=== PATIENT | male | born 1950 | race Asian ===

== ENCOUNTER 2021-02-27 06:18 | Emergency (ER) | payer OTHER ==
[2021-02-27 06:47] VITALS: TEMP 98.4; BMI 24.3
[2021-02-27] MEDS ORDERED: ACETAMINOPHEN 325 MG TABLET (FP) PO ONE (07:17)
[2021-02-27] MEDS ORDERED: ACETAMINOPHEN 325 MG TABLET (FP) ONE (07:38)
[2021-02-27 08:04] LABS: BASO % 0.3 % (0-2.0); EOS % 0.9 % (0-4.5); HEMATOCRIT 40.6 % (35.4-49); HEMOGLOBIN 13.8 GM/dL (11.7-16.9); LYMPH % 10.5 % (8-40); MCH 28.8 pg (25.7-33.7); MCHC 34.1 g/dl (32.0-35.9); MEAN CELL VOLUME 84.5 fl (80-96); MEAN PLT VOLUME 7.8 fl (7.5-11.1); MONO % 5.9 % (3.8-10.2); NEUT % 82.4 % (42.8-82.8); PLATELET COUNT 235 K/MM3 (134-434); RDW 13.9 % (11.9-15.9); WHITE BLOOD COUNT 9.4 K/mm3 (4.0-10.0)
[2021-02-27 08:17] LABS: CALCIUM 8.7 mg/dL (8.5-10.1)
[2021-02-27 08:18] LABS: ALBUMIN 4.2 g/dl (3.4-5.0); BLOOD UREA NITROGEN 20.8 mg/dL (7-18)
[2021-02-27 08:21] LABS: CREATININE 1.2 mg/dL (0.55-1.3)
[2021-02-27 08:22] LABS: BILIRUBIN,TOTAL 0.5 mg/dL (0.2-1)
[2021-02-27 08:24] LABS: TOT PROT 7.4 g/dl (6.4-8.2)
[2021-02-27 08:29] LABS: EPI CELLS 1 /uL (0-25.1); HYALINE CASTS 0 /uL (0-3.1); PH,URINE 5.5 (5.0-8.0); URINE APPEARANCE CLOUDY; URINE BILIRUBIN 1+ (NEGATIVE); URINE COLOR RED; URINE GLUCOSE (UA) 2+ (NEGATIVE); URINE KETONE NEGATIVE (NEGATIVE); URINE LEUK ESTERASE 2+ (NEGATIVE); URINE NITRITE POSITIVE (NEGATIVE); URINE PROTEIN 3+ (NEGATIVE); URINE RBC 72 /uL (0-23.9); URINE UROBILINOGEN 0.2 mg/dL (0.2-1.0); URINE WBC 2 /uL (0-25.8)
[2021-02-27 10:13] VITALS: BP 143/80; PULSE 76
== END 2021-02-27 10:18 | disposition home or self-care (01) ==
LOC: JER 06:18
DX: R33.9 Retention of urine, unspecified (principal); R31.0 Gross hematuria
CPT/HCPCS: 36415; 80053; 81003; 85025; 87086; 99283-25

== ENCOUNTER 2021-03-01 05:54 | Emergency (ER) | payer OTHER ==
[2021-03-01 06:07] VITALS: PULSE 90; TEMP 98.6; BMI 24.3
[2021-03-01 06:36] VITALS: BP 170/95
== END 2021-03-01 07:01 | disposition home or self-care (01) ==
LOC: JER 05:54
DX: R33.9 Retention of urine, unspecified (principal); T83.9XXA Unspecified complication of genitourinary prosthetic device, implant and graft, initial encounter
CPT/HCPCS: 99283-25